=== PATIENT | female | born 1965 | race Caucasian/White ===

== ENCOUNTER → 2024-06-17 13:51 | Outpatient (REF) | payer OTHER, SELFPAY | LOC: RAD 13:51 | PROVIDERS: ATTENDING PHYSICIAN Internal Medicine Cardiovascular Disease; FAMILY PHYSICIAN Nurse Practitioner Family | DX: Z01.818 Encounter for other preprocedural examination (principal) | CPT/HCPCS: 71250 ==

== ENCOUNTER → 2024-12-20 14:10 | Outpatient (REF) | payer OTHER, SELFPAY | LOC: PAVMRI 14:10 | PROVIDERS: ATTENDING PHYSICIAN Internal Medicine Cardiovascular Disease; FAMILY PHYSICIAN Family Medicine | DX: I10 Essential (primary) hypertension (principal); E78.5 Hyperlipidemia, unspecified; I72.2 Aneurysm of renal artery | CPT/HCPCS: 71555; A9585 ==